=== PATIENT | female | born 1970 | race Caucasian/White ===

== ENCOUNTER 2017-05-08 10:38 | Emergency (ER) | payer BC ==
[2017-05-08 11:10] VITALS: BP 108/67
--- NOTE | 2017-05-08 11:42 | UC ---
Back Pain HPI - HPI Summary HPI Summary: lower back pain x 1 day pain is sever 8 out of 10 , no radiation of the pain , worse with movements , better with rest, no numbness , no tingling of LE , no urinary sx - History of Current Complaint Chief Complaint: UCBackPain Stated Complaint: LOWER BACK PAIN Time Seen by Provider: 05/08/17 11:10 Hx Obtained From: Patient Hx Last Menstrual Period: 05/02/17 ?: No Onset/Duration: Sudden Onset, Lasting Days - 1, Still Present Timing: Constant Severity Initially: Moderate Severity Currently: Moderate Back Pain: Is Discrete @ - lower back Aggravating Factor(s): Movement, Lifting, Bending, Walking, Cough Alleviating Factor(s): Nothing Associated Signs And Symptoms: Negative: Swelling, Redness, Bruising, Fever, Weakness, Numbness, Tingling, Abdominal Pain, Flank Pain, Bladder Incontinence, Bowel Incontinence, Weight Loss, Pain with Weight Bearing - Allergies/Home Medications Allergies/Adverse Reactions: Allergies Allergy/AdvReac Type Severity Reaction Status Date / Time No Known Allergies Allergy Verified 05/08/17 11:10 PMH/Surg Hx/FS Hx/Imm Hx Previously Healthy: Yes - Surgical History Surgical History: Yes Surgery Procedure, Year, and Place: x 2 - Family History Known Family History: Negative: Diabetes - Social History Alcohol Use: Weekly Alcohol Amount: few beers Substance Use Type: None Smoking Status (MU): Never Smoked Tobacco - Immunization History Most Recent Influenza Vaccination: no Review of Systems Constitutional: Negative Skin: Negative Eyes: Negative ENT: Negative Respiratory: Negative Cardiovascular: Negative Is Patient Immunocompromised?: No All Other Systems Reviewed And Are Negative: Yes Physical Exam Triage Information Reviewed: Yes Appearance: Well-Nourished, Pain Distress Vital Signs: Initial Vital Signs Temp 99.1 F 05/08/17 11:05 Pulse 68 05/08/17 11:05 Resp 16 05/08/17 11:05 BP 108/67 05/08/17 11:05 Pulse Ox 98 05/08/17 11:05 Vital Signs Reviewed: Yes Eyes: Positive: Conjunctiva Clear ENT: Positive: Normal ENT inspection, Hearing grossly normal, Pharynx normal Neck: Positive: Supple, Nontender, No Lymphadenopathy Respiratory: Positive: Chest non-tender, Lungs clear, Normal breath sounds Cardiovascular: Positive: RRR, No Murmur, Pulses Normal Abdomen Description: Positive: Nontender, Soft Bowel Sounds: Positive: Present Musculoskeletal: Positive: Other: - lower back : no swelling, no erythema , + tenderness right lower back , limited ROM on flexion and extension Neurological: Positive: Alert Skin Exam: Normal Back Pain Course/Dx - Differential Dx/Diagnosis Provider Diagnoses: lower back strain Discharge - Discharge Plan Condition: Stable Disposition: HOME Prescriptions: Cyclobenzaprine TAB* [Flexeril 10 MG TAB*] 10 mg PO BID #20 tab Naproxen [Naproxen 500 mg] 500 mg PO BID #20 tab Patient Education Materials: Low Back Strain (ED) Referrals: Guerline Zheng MD [Primary Care Provider] - 7 Days
== END 2017-05-08 11:46 | disposition home or self-care (01) ==
LOC: UCCORT 10:38
DX: S39.012A Strain of muscle, fascia and tendon of lower back, initial encounter (principal); X58.XXXA Exposure to other specified factors, initial encounter
CPT/HCPCS: 99202; G0463

== ENCOUNTER 2017-06-11 12:12 | Emergency (ER) | payer BC ==
[2017-06-11 14:08] VITALS: BP 128/81
[2017-06-11] MEDS ORDERED: Ibuprofen TAB* 400 MG PO ONE (15:01)
--- NOTE | 2017-06-11 15:01 | UC ---
Throat Pain/Nasal [place]ienvenido HPI - HPI Summary HPI Summary: 47 y/o female presents to the urgent care c/o sore throat, headache and nausea since last night. Pains is 8/10 and feels her throat is closing when she swallows associated with sinus congestion yellowish nasal discharge, nausea and dry cough. Pt denies fever, SOB, chest pain, V/D, abdominal pain, urinary symptoms. She started to take Sudafed this morning to alleviate symptoms. - History of Current Complaint Chief Complaint: UCGeneralIllness Stated Complaint: ST Time Seen by Provider: 06/11/17 14:52 Hx Obtained From: Patient Hx Last Menstrual Period: 05/02/17 Onset/Duration: Gradual Onset, Lasting Days - 1 day Severity: Moderate Pain Intensity: 8 Pain Scale Used: 0-10 Numeric Cough: Nonproductive Associated Signs & Symptoms: Positive: Dysphagia, Sinus Discomfort, Nasal Discharge. Negative: Fever Related History: Seasonal Allergies - Epiglottits Risk Factors Epiglottis Risk Factors: Negative - Allergies/Home Medications Allergies/Adverse Reactions: Allergies Allergy/AdvReac Type Severity Reaction Status Date / Time No Known Allergies Allergy Verified 05/08/17 11:10 PMH/Surg Hx/FS Hx/Imm Hx Previously Healthy: Yes - Pt denies PMHX - Surgical History Surgical History: Yes Surgery Procedure, Year, and Place: x 2 - Family History Known Family History: Positive: None - Pt denies FMHX Negative: Diabetes - Social History Occupation: Employed Full-time Lives: With Family Alcohol Use: Occasionally Alcohol Amount: few beers Substance Use Type: None Smoking Status (MU): Never Smoked Tobacco - Immunization History Most Recent Influenza Vaccination: no Review of Systems Constitutional: Negative Skin: Negative Eyes: Negative ENT: Sore Throat, Nasal Discharge, Sinus Congestion, Sinus Pain/Tenderness Respiratory: Cough - dry Cardiovascular: Negative Gastrointestinal: Negative Genitourinary: Negative Motor: Negative Neurovascular: Negative Musculoskeletal: Negative Neurological: Negative Psychological: Negative Is Patient Immunocompromised?: No All Other Systems Reviewed And Are Negative: Yes Physical Exam Triage Information Reviewed: Yes Vital Signs: Initial Vital Signs Temp 98.4 F 06/11/17 14:02 Pulse 70 06/11/17 14:02 Resp 14 06/11/17 14:02 BP 128/81 06/11/17 14:02 Pulse Ox 98 06/11/17 14:02 - Additional Comments Physical exam: General: Well developed, well-nourished female patient with NAD. Head and face: Normocephalic and atraumatic, Positive tenderness over the frontal and maxillary sinuses.. Eyes: PERRLA, EOMI x 2. Normal conjunctiva. No eye discharge. ENT: Ears and TM with normal limits. Nose: with yellowish discharge and erythematous mucosa. Pharynx with mild erythema, no exudate. Neck: Supple, no JVD, no carotid bruits and no lymphadenopathy. Lungs: clear, no rales, no rhonchi, no wheezes. CVS: RRR, S1 and S2 present no murmurs or gallops appreciated. Abdomen: soft nontender with positive bowel sounds. Extremities: no edema noted. Neuro: WNL. Skin: warm and dry Throat Pain/Nasal Course/Dx - Course Course Of Treatment: 47 y/o female presents to the urgent care c/o sore throat, headache and nausea since last night. Pains is 8/10 and feels her throat is closing when she swallows associated with sinus congestion yellowish nasal discharge, nausea and dry cough. Pt denies fever, SOB, chest pain, V/D, abdominal pain, urinary symptoms. She started to take Sudafed this morning to alleviate symptoms.Hx obtained. Pt with acute sinusitis and pharyngitis on examination. Rapid strep ordered, result: negative. Viral pharyngitis. Pt advised to continue with Sudafed and Rx ibuprofen PO, flonase and Zofran PO to alleviates symptoms of pain and swelling. However, Pt requested ABX treatment for her sinusitis. Pt Rx Amoxicillin PO. Pt advised to rest, eat well and avoid strenuous exercise. If symptoms do not improve or worsen advised to return to the urgent care or f/u with her PCP for further evaluation and treatment. Pt understood and agreed with plan of care - Differential Dx/Diagnosis Differential Diagnosis/HQI/PQRI: Influenza, Laryngitis, Mononucleosis, Peritonsillar Abscess, Pharyngitis, Sinusitis, Tonsillitis, URI Provider Diagnoses: 1- Acute sinusitis. 2-pharyngitis Discharge - Discharge Plan Condition: Stable Disposition: HOME Prescriptions: Amoxicillin PO (*) [Amoxicillin 875 MG (*)] 875 mg PO BID #20 tab Fluticasone NASAL SPRAY 50MCG* [Flonase NASAL SPRAY 50MCG*] 2 spray BOTH NARES DAILY #1 btl Ibuprofen TAB* [Motrin TAB* 800 MG] 800 mg PO Q6H #30 tab Ondansetron ODT TAB* [Zofran 4 MG Odt TAB*] 4 mg PO Q8H PRN #9 tab.odt PRN Reason: Nausea Patient Education Materials: Pharyngitis (ED), Sinusitis (ED) Referrals: Guerline Zheng MD [Medical Doctor] - 3 Days Additional Instructions: 1- Please increase fluid intake and rest. take full course of antibiotic to avoid resistance 2-Use Flonase as directed to help drain fluid. Also buy saline drops to clear sinuses 3-Take Sudafed or Claritin PO to alleviates sinus congestion 4- If you develop, SOB and fever please go immediately to the Er for further management 5- Take the Zofran PO just in case if you continue with the nausea.
== END 2017-06-11 15:29 | disposition home or self-care (01) ==
LOC: UCCORT 12:12
DX: J01.90 Acute sinusitis, unspecified (principal); J02.9 Acute pharyngitis, unspecified
CPT/HCPCS: 87651; 99212; A9270-GY; G0463